=== PATIENT | female | born 1945 | race Caucasian/White ===

== ENCOUNTER 2020-10-04 12:16 | Outpatient (CLI) | payer MEDICARE, OTHER ==
--- NOTE | 2020-10-04 14:00 | RAD ---
RIGHT FOOT THREE VIEWS: History: Foot pain, no history of trauma. FINDINGS: The bones appear demineralized. There are arthritic changes of the foot. There are some chronic appea ring periosteal change along some of the metatarsals. Calcaneal spurs are present. IMPRESSION: No acute changes. Diffuse bony demineralization. Mild arthritic changes of the foot. No erosive bony change. POS: OFF
--- NOTE | 2020-10-04 14:34 | RAD ---
LEFT HAND THREE VIEWS: History: Pain. Rheumatoid arthritis. FINDINGS: Severe degenerative change at the first carpal metacarpal with joint narrowing and hypertrophic spurr ing. Sclerosis and compression of the trapezium. The MCP joints are narrowed. No significant erosive change at the MCP joints. Degenerative changes at the IP joints. Degenerative spurring at all DIP joints with prominent dorsal spurring seen at the DIP joints of the 2nd, 3rd, and 4th fingers. No significant erosive change. Ther e is osteopenia. 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 Moderate degenerative changes in th e DIP joints. POS: AGW
--- NOTE | 2020-10-04 14:46 | RAD ---
RIGHT HAND THREE VIEWS: History: Rheumatoid arthritis. Hand pain. FINDINGS: Severe degenerative change at the first carpal metacarpal with joint narrowing, sclerosis and hypertr ophic change. MCP joints are narrowed, however, no erosive or hypertrophic change at the MCP joints. Degenerative joints at the IP joints more prominent at the DIP joints. Dorsal spurring prominent. The DIP joints second through fifth digits. IMPRESSION: 1. 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 Moderate degenerative changes in the DI P joints. POS: AGW
--- NOTE | 2020-10-04 15:20 | RAD ---
LEFT FOOT: 10/04/20 Three views. HISTORY: Rheumatoid arthritis. Foot pain. There are enthesophytes from both the posterior and plantar calcaneus. Tarsals unremarkable. Mild deg enerative changes at the tarsometatarsals. The MTP joints show no significant erosive change. Mild degenerative spurring at the first MTP joint. The IP joints are unremarkable. IMPRESSION: There are degenerative changes as described. POS: AGW
== END 2020-10-04 12:17 | disposition home or self-care (01) ==
LOC: BICRAD 12:16
DX: M06.09 Rheumatoid arthritis without rheumatoid factor, multiple sites (principal); M18.0 Bilateral primary osteoarthritis of first carpometacarpal joints; M19.071 Primary osteoarthritis, right ankle and foot; M19.072 Primary osteoarthritis, left ankle and foot

== ENCOUNTER 2023-08-03 14:53 | Outpatient (CLI) | payer MEDICARE, OTHER ==
[2023-08-03 16:57] LABS: #Basophils 0.1 10x3/uL (0.0-0.2); #Eosinphils 0.2 10x3/uL (0.0-0.5); #Monocytes 0.6 10x3/uL (0.0-1.1); #Neutrophils 3.9 10x3/uL (1.5-8.4); %Eosinophils 3.1 % (0.0-6.0); %Lymphocytes 36.9 % (18.0-47.0); %Monocytes 8.3 % (0.0-10.0); %Neutrophils 50.4 % (40.0-75.0); Hematocrit 38.6 % (34.9-44.5); Hemoglobin 12.3 g/dL (12.0-15.5); Mean Corpuscular HGB CONC 31.9 g/dL (32.0-36.0); Mean Corpuscular Hemoglobin 29.1 pg (27.0-33.0); Mean Corpuscular Volume 91.5 fl (81.6-98.3); Mean Platelet Volume 10.9 fl (7.4-10.4); Platelet Count 406 10x3/uL (150-450); RBC Distribution Width 14.5 % (11.5-14.5); Red Blood Cell (RBC) Count 4.22 10x6/uL (3.90-5.03); White Blood Cell (WBC) Count 7.7 10x3/uL (3.5-10.5)
[2023-08-03 17:24] LABS: Anion Gap 11 mmol/L (10-20); BUN (Urea Nitrogen) 20 mg/dL (9.8-20.1); Calc. Creatinine Clearance 0 mL/min (70-130); Calcium 8.9 mg/dL (7.8-10.44); Carbon Dioxide 28 mmol/L (23-31); Chloride 107 mmol/L (98-107); Estimated GFR 77; Glucose 78 mg/dL (83-110); Potassium 4.2 mmol/L (3.5-5.1); Sodium 142 mmol/L (136-145)
== END 2023-08-03 14:54 | disposition home or self-care (01) ==
LOC: LABBT 14:53
PROVIDERS: ATTEND Surgery
DX: Z01.818 Encounter for other preprocedural examination (principal); K44.9 Diaphragmatic hernia without obstruction or gangrene
CPT/HCPCS: 80048; 85025; 93005; 93010

== ENCOUNTER 2023-08-05 07:57 | Day surgery (SDC) | payer MEDICARE, OTHER ==
[2023-08-03 15:29] VITALS: BMI 31.7
[2023-08-05] MEDS ORDERED: Rocuronium Bromide 10 MG/ML (10ML VIAL) ONE ×2 (08:33→10:15)
[2023-08-05] MEDS ORDERED: PROPOFOL 20 ML ONE (08:33)
[2023-08-05] MEDS ORDERED: Lidocaine 1% PF 5 ML VIAL ONE ×3 (08:33→11:04)
[2023-08-05] MEDS ORDERED: Bupivacaine 0.25% HCL 30 ML VIAL ONE (08:48)
[2023-08-05] MEDS ORDERED: EPINEPHrine 1 MG/ML VIAL ONE (08:48)
[2023-08-05] MEDS ORDERED: Propofol 500 MG/50 ML VIAL ONE (09:55)
[2023-08-05] MEDS ORDERED: CEFAZOLIN 2 GM VIAL ONE (10:01)
[2023-08-05] MEDS ORDERED: Sodium Chloride 0.9% 100 ML ONE (10:01)
[2023-08-05] MEDS ORDERED: fentaNYL PF 100 MCG/2 ML SYRINGE ONE (10:10)
[2023-08-05] MEDS ORDERED: PHENYLEPHRINE-NS 100 MCG/ML 10 ML SYRINGE ONE ×2 (10:15→10:35)
[2023-08-05] MEDS ORDERED: PROPOFOL 200 MG/20 ML VIAL ONE (10:15)
[2023-08-05] MEDS ORDERED: Ondansetron PF 4 MG/2 ML Vial ONE ×2 (10:15→11:36)
[2023-08-05] MEDS ORDERED: Dexamethasone 20 MG/5 ML VIAL ONE (10:15)
[2023-08-05] MEDS ORDERED: Phenylephrine 40 MG/NS 250 ML 250 ML ONE (10:46)
[2023-08-05] MEDS ORDERED: SUGAMMADEX SODIUM 200 MG/2 ML VIAL ONE (11:36)
[2023-08-05] MEDS ORDERED: fentaNYL 50 mcg/mL 1 mL Vial ONE ×2 (12:23→12:43)
[2023-08-05] MEDS ORDERED: HYDROmorphone 0.5 MG/0.5 ML SYRINGE ONE ×2 (12:51→13:30)
== END 2023-08-05 16:33 | disposition home or self-care (01) ==
LOC: SDC 07:57
PROVIDERS: ATTEND Surgery
PROC: 0DV44ZZ Restriction of Esophagogastric Junction, Percutaneous Endoscopic Approach (ICD-10-PCS; principal; 2023-08-05)
DX: K44.9 Diaphragmatic hernia without obstruction or gangrene (principal); E78.00 Pure hypercholesterolemia, unspecified; I10 Essential (primary) hypertension; Z88.8 Allergy status to other drugs, medicaments and biological substances
CPT/HCPCS: 43281; J0171; J3010; J1100; J1170; J2405; J2704; J3490; S0020